=== PATIENT | male | born 1950 | race Caucasian/White ===

== ENCOUNTER 2016-07-13 14:48 | Emergency (ER) | payer MEDICARE, BC ==
[2016-07-13] MEDS ORDERED: TOPROL XL 25MG25 MG PO (15:18)
[2016-07-13] MEDS ORDERED: ZOCOR10 M1 PO (15:19)
[2016-07-13 19:09] VITALS: BP 137/75
== END 2016-07-13 19:22 | disposition short-term general hospital (02) ==
LOC: ED 14:48
DX: K35.2 Acute appendicitis with generalized peritonitis (principal); F17.210 Nicotine dependence, cigarettes, uncomplicated
CPT/HCPCS: J1885; J2270; J7030; Q9967

== ENCOUNTER → 2018-04-01 | Outpatient (CLI) | payer MEDICARE, BC ==
[~2018-04-01] MED LIST: TOPROL XL 25MG25 MG PO; ZOCOR10 M1 PO
== END ==
LOC: RAD 08:20
DX: M17.11 Unilateral primary osteoarthritis, right knee (principal)

== ENCOUNTER → 2019-06-02 | Outpatient (CLI) | payer MEDICARE, BC | LOC: RAD 08:00 | DX: M17.11 Unilateral primary osteoarthritis, right knee (principal) ==

== ENCOUNTER → 2020-10-18 | Outpatient (CLI) | payer MEDICARE, BC | LOC: RAD 08:15 | DX: M17.11 Unilateral primary osteoarthritis, right knee (principal) ==

== ENCOUNTER → 2021-12-05 | Outpatient (CLI) | payer MEDICARE, BC | LOC: RAD 07:55 | DX: Z13.6 Encounter for screening for cardiovascular disorders (principal) ==

== ENCOUNTER → 2022-01-28 | Day surgery (SDC) | payer MEDICARE, BC | LOC: MSO 07:29 | DX: D12.2 Benign neoplasm of ascending colon (principal); D12.5 Benign neoplasm of sigmoid colon; K57.30 Diverticulosis of large intestine without perforation or abscess without bleeding; F17.210 Nicotine dependence, cigarettes, uncomplicated | CPT/HCPCS: 00811; J2704; J3010; J3490; J7120 ==

== ENCOUNTER → 2022-08-28 | Outpatient (CLI) | payer MEDICARE, BC | LOC: RAD 08:09 | DX: M17.11 Unilateral primary osteoarthritis, right knee (principal) ==

== ENCOUNTER 2024-03-26 14:50 | Emergency (ER) | payer MEDICARE, BC ==
[~2024-03-26] VITALS: Ht 190.5 cm; Wt 119.1 kg
[2024-03-26 15:52] LABS: BASO # 0.02 K/mm3 (0.02-0.10); EOS # 0.15 K/mm3 (0.04-0.40); EOS % 2.3 % (0.0-4.0); HEMATOCRIT 41.7 % (42.0-52.0); HEMOGLOBIN 14.3 g/dL (13.5-18.0); LYMPH# 1.58 K/mm3 (1.50-4.00); MEAN CELL VOLUME 93 fl (78-100); MEAN CORPUSCULAR HEMOGLOBIN 32 pg (27-31); MEAN CORPUSCULAR HGB CONC 34 g/dL (33-37); MEAN PLATELET VOLUME 10.1 fl (7.4-10.4); MONO # 0.53 K/mm3 (0.20-0.80); NEU # 4.22 K/mm3 (1.40-6.50); PLATELET COUNT 204 K/mm3 (130-400); RED BLOOD COUNT 4.49 M/mm3 (4.20-5.60); RED CELL DISTRIBUTION WIDTH 12.5 % (11.5-14.5); WHITE BLOOD COUNT 6.5 K/mm3 (4.8-10.8)
[2024-03-26 15:58] LABS: ALBUMIN 4.1 g/dL (3.4-4.8)
[2024-03-26 16:00] LABS: CALCIUM 9.1 mg/dL (8.3-10.5)
[2024-03-26 16:01] LABS: TOTAL PROTEIN 6.7 g/dL (6.2-8.1)
[2024-03-26 16:03] LABS: TOTAL BILIRUBIN 0.3 mg/dL (0.2-1.2)
[2024-03-26] MEDS ORDERED: Iohexol 300 - 100 ML VIAL IV ONE (16:22)
[2024-03-26 17:09] LABS: URINE APPEARANCE CLEAR (CLEAR); URINE BILIRUBIN NEGATIVE (NEGATIVE); URINE BLOOD TRACE-INTACT (NEGATIVE); URINE COLOR YELLOW (YELLOW); URINE GLUCOSE NEGATIVE (NEGATIVE); URINE KETONE NEGATIVE (NEGATIVE); URINE LEUKOCYTE ESTERASE NEGATIVE (NEGATIVE); URINE NITRATE NEGATIVE (NEGATIVE); URINE PROTEIN(semi-quant) NEGATIVE (NEGATIVE); URINE WBC 0-1 /hpf (0-3)
[2024-03-26 17:51] VITALS: BP 135/84
== END 2024-03-26 18:06 | disposition home or self-care (01) ==
LOC: ED 14:50
PROVIDERS: Family Medicine
DX: M54.50 Low back pain, unspecified (principal); R10.9 Unspecified abdominal pain; E27.9 Disorder of adrenal gland, unspecified; F17.200 Nicotine dependence, unspecified, uncomplicated
CPT/HCPCS: J7120; Q9967